=== PATIENT | male | born 1945 | race Caucasian/White ===

== ENCOUNTER → 2016-11-07 | Outpatient (CLI) | payer MEDICARE, OTHER ==
[~2016-11-07] MED LIST: ALBUTEROL SULFAT3 M3 IH; ALBUTEROL0.83 MG/ML IH; ASPIRIN 81M81 MG/TA2 PO; ATIVAN 0.50.5 MG/TAB PO; CALCIUM ANTAC1000 M2 PO; CALCIUM1 CAP PO; CARDI-OMEGA1000 MG PO; CO ENZYME Q-1050 MG PO; COZAAR100 MG PO; CPAP; DOXYCYCLINE 10100 MG PO; DUO-KAPS1 CAP PO; ERYTHROMYCIN250 MG PO; FLOMAX 0.40.4 MG/CAP PO; FLONASE NASAL S16 GM NS; HCTZ 25MG TAB25 MG PO; KLONOPIN 0.5MG0.5 MG PO; LORTAB 7.5/5001 TAB; MAREPA1200 MG PO; MULTIPLE VITAMI1 CAP PO; NORCO 325 MG-7.1 TAB PO; PEPCID AC20 M1 PO; PREDNISONE10 MG PO; PREDNISONE20 MG PO; PRILOSEC 20MG20 MG PO; PROAIR HFA0.09 MG/AC IH; QVAR0.04 MG/AC IH; RITE AID KRILL500 MG PO; RT ADVAIR 528 DISKUS IH; SINGULAIR 110 MG/TAB PO; TENORMIN 5050 MG/TAB PO; TENORMIN100 MG PO; VITAMIN D1000 IU PO; ZESTRIL 20MG TA20 MG PO
== END ==
LOC: COL.RAD 13:14
DX: K44.9 Diaphragmatic hernia without obstruction or gangrene (principal)
CPT/HCPCS: Q9967

== ENCOUNTER → 2016-11-07 | Outpatient (CLI) | payer MEDICARE, OTHER | LOC: COL.LAB 10:56 | DX: R60.9 Edema, unspecified (principal) ==

== ENCOUNTER 2019-06-19 09:38 | Emergency (ER) | payer MEDICARE, OTHER ==
[~2019-06-19] VITALS: Ht 165.1 cm; Wt 104.5 kg
[2019-06-19 09:41] VITALS: TEMP 99.2
[2019-06-19 10:11] LABS: BASO % 0.4 % (0.0-2.0); EOS % 0.6 % (0-4.0); GRAN # 6.3 (1.4-6.5); GRAN % 88.1 % (42.2-75.2); HEMATOCRIT 43.8 % (42.0-52.0); HEMOGLOBIN 15.1 g/dl (13.5-18.0); LYMPH # 0.3 (1.2-3.4); LYMPH % 4.3 % (20.0-51.0); MEAN CELL VOLUME 92 fl (80.0-100.0); MEAN CORPUSCULAR HEMOGLOBIN 32 pg (27.0-31.0); MEAN CORPUSCULAR HGB CONC 35 g/dl (33.0-37.0); MEAN PLATELET VOLUME 9.8 fl (7.4-10.4); MONO # 0.4 (0.1-0.6); MONO % 6.2 % (1.7-9.3); PLATELET COUNT 108 K/mm3 (130-400); RED BLOOD COUNT 4.78 M/mm3 (4.20-5.60); REDCELL DISTRIBUTION WIDTH-CV 13.1 % (11.5-14.5)
[2019-06-19 10:22] LABS: ALBUMIN 4.7 gm/dL (3.5-5.0); BILIRUBIN,TOTAL 1.1 mg/dL (0.0-1.0); CALCIUM 9.3 mg/dL (8.4-10.2); CREATININE, serum 1.03 (0.66-1.25); TOTAL PROTEIN 7.8 gm/dL (6.4-8.2)
[2019-06-19] MEDS ORDERED: TAMIFLU 75MG75 MG PO (10:59)
[2019-06-19] MEDS ORDERED: TENORMIN 5050 MG/TAB PO (11:44)
[2019-06-19] MEDS ORDERED: EPA FISH OIL1 SGL PO (11:46)
[2019-06-19] MEDS ORDERED: NORVASC 5MG5 MG/TAB PO (11:48)
[2019-06-19] MEDS ORDERED: ZYRTEC10MGSGL (11:49)
[2019-06-19] MEDS ORDERED: PREDNISONE20 MG PO (13:06)
[2019-06-19 13:19] VITALS: BP 167/82; PULSE 79
== END 2019-06-19 13:21 | disposition home or self-care (01) ==
LOC: COL.ER 09:38
PROVIDERS: Physician Assistant
DX: J09.X2 Influenza due to identified novel influenza A virus with other respiratory manifestations (principal); J45.901 Unspecified asthma with (acute) exacerbation; Z79.82 Long term (current) use of aspirin
CPT/HCPCS: J3475; J7512